=== PATIENT | male | born 2000 | race Caucasian/White ===

== ENCOUNTER → 2024-10-11 | Emergency (ER) | payer OTHER ==
[~2024-10-11] VITALS: Ht 170.2 cm; Wt 81.6 kg
[~2024-10-11] MED LIST: CEFTRIAXONE SODIUM 2,000 MG VIAL IV ONE; SYNTHROID50 MCG PO; TETANUS & DIPHTHERIA TOX,ADULT 0.5 ML VIAL IM ONE
== END | disposition home or self-care (01) ==
LOC: ER 16:02
DX: S61.422A Laceration with foreign body of left hand, initial encounter (principal); W26.8XXA Contact with other sharp object(s), not elsewhere classified, initial encounter; Y93.89 Activity, other specified; Y92.89 Other specified places as the place of occurrence of the external cause

== ENCOUNTER 2024-10-20 11:16 | Emergency (ER) | payer OTHER ==
[~2024-10-20] VITALS: Ht 175.3 cm; Wt 95.3 kg
[~2024-10-20 11:16] MED LIST changes: -CEFTRIAXONE SODIUM 2,000 MG VIAL IV ONE; -TETANUS & DIPHTHERIA TOX,ADULT 0.5 ML VIAL IM ONE
== END 2024-10-20 12:07 | disposition home or self-care (01) ==
LOC: ER 11:19
DX: Z48.02 Encounter for removal of sutures (principal)